=== PATIENT | male | born 1950 | race Caucasian/White ===

== ENCOUNTER 2017-10-13 18:42 | Inpatient (IN) | payer MEDICARE ==
[2017-10-13] MEDS ORDERED: predniSONE 20 MG TAB ONE (19:56)
[2017-10-13] MEDS ORDERED: predniSONE 10 MG TAB ONE (19:56)
[2017-10-13] MEDS ORDERED: Azithromycin 250 MG TAB ONE (19:56)
--- NOTE | 2017-10-13 20:33 | RAD ---
CHEST TWO VIEW 10/13/17 HISTORY: Cough and dyspnea. COMPARISON: None. FINDINGS: There is a left basilar air space opacity. There is a nodular density projecting in the right upper l obe. No pneumothorax. No acute osseous abnormality. Cardiac silhouette and mediastinal contours are w ithin normal limits. IMPRESSION: 1. Left basilar air space opacity concerning for infection. 2. Nodular density projecting in right upper lobe. Close attention on followup radiographs afte r treatment recommended. POS: ORALIA
[2017-10-13] MEDS ORDERED: Sodium Chloride 0.9% 100 ML ONE (20:37)
[2017-10-13] MEDS ORDERED: cefTRIAXone\\ROCEPHIN 2 GM VIAL ONE (20:37)
[2017-10-13] MEDS ORDERED: Ondansetron HCl/PF 4 MG/2 ML Vial ONE (20:59)
[2017-10-13 21:24] LABS: ALT (SGPT) 33 U/L (8-55); AST (SGOT) 33 U/L (5-34); Albumin 3.9 g/dL (3.4-4.8); Alkaline Phosphatase 68 U/L (40-150); Anion Gap 13 mmol/L (10-20); BUN (Urea Nitrogen) 15 mg/dL (8.4-25.7); Bilirubin, Total 0.5 mg/dL (0.2-1.2); CKMB 3.7 ng/mL (0-6.6); Calc. Creatinine Clearance 0 mL/min (70-130); Calcium 9.1 mg/dL (7.8-10.44); Carbon Dioxide 28 mmol/L (23-31); Chloride 101 mmol/L (98-107); Estimated GFR-MDRD 77; Globulin 3.5 g/dL (2.4-3.5); Glucose 121 mg/dL (80-115); Potassium 3.8 mmol/L (3.5-5.1); Protein, Total 7.4 g/dL (5.8-8.1); Sodium 138 mmol/L (136-145); Troponin I 0.011 ng/mL (< 0.028)
[2017-10-13 21:29] LABS: Band 15 % (5-11); Hemoglobin 13.9 g/dL (14.0-18.0); Lymphocytes 9 % (21-51); MDiff Complete? YES; Mean Corpuscular HGB CONC 34.5 g/dL (32.0-36.0); Mean Corpuscular Hemoglobin 30.4 pg (27.0-31.0); Mean Corpuscular Volume 87.9 fl (80.0-94.0); Mean Platelet Volume 6.8 fL (7.4-10.4); Monocytes 5 % (0-10); Neutrophil 71 % (42-75); Platelet Count 357 thou/uL (130-400); RBC Distribution Width 11.3 % (11.5-14.5); Red Blood Cell (RBC) Count 4.57 mill/uL (4.70-6.10); White Blood Cell (WBC) Count 16.1 thou/uL (4.8-10.8)
[2017-10-13] MEDS ORDERED: Pantoprazole 40 MG VIAL ONE (21:47)
[2017-10-14] MEDS ORDERED: Acetaminophen 325 MG TAB PO PRN (01:22)
[2017-10-14] MEDS ORDERED: Ondansetron ODT 4 MG TAB SL PRN (01:22)
[2017-10-14] MEDS ORDERED: Ondansetron HCl/PF 4 MG/2 ML Vial IVP PRN (01:22)
[2017-10-14 02:14] VITALS: BMI 31.2
[2017-10-14] MEDS: Diabetic Tussin 200 MG/10 ML UDCUP PO PRN (02:53)
[2017-10-14] MEDS: Azithromycin 500 MG in Sodium Chloride 0.9% 250 ML 250 ML IVPB SCH (04:46)
--- NOTE | 2017-10-14 04:47 | HP ---
PRIMARY CARE PHYSICIAN: GLORIA. CHIEF COMPLAINT: Shortness of breath. HISTORY OF PRESENT ILLNESS: A 67-year-old male with a minimal past medical history, who is presenting with a chief complaint of shortness of breath. He was found to be hypoxic with a pulse oximetry of 88% on room air, tachypneic, respirations of 22 with a low grade temperature of 101 on presentation. In the emergency room, his evaluation demonstrated a left lower lobe community- acquired pneumonia. The patient currently at the time of my evaluation is on the floor and states that his breathing is somewhat better after administration of breathing treatments, cough medications, and empiric antibiotics in the emergency department. The patient denies any prior similar issues. States that his symptoms have been progressive with cough, low-grade fevers over the past week. His was sick with similar but milder symptoms a few days before he got sick. REVIEW OF SYSTEMS: As per HPI. Constitutional: No significant weight loss or gain in the last 2 weeks. Subjective fevers and chills over the last week. HEENT: Positive for cough, intermittently productive. No other congestion. No headaches, no dizziness, no lightheadedness. Cardiovascular: No chest pain or chest pressure. No left-sided arm numbness or tingling. Respiratory: Dyspnea on exertion with shortness of breath and cough as discussed above. Gastrointestinal: No nausea, no vomiting, no abdominal pain, no issues with constipation or diarrhea. The patient has retained appetite throughout all of these issues. Musculoskeletal: No new myalgias or arthralgias. PAST MEDICAL HISTORY: As per HPI. 1. Obesity. 2. Gastroesophageal reflux disease. 3. Hypertension. 4. Hyperlipidemia. 5. History of spontaneous pneumothorax when the patient was in his 20s. 6. Status post cholecystectomy. 7. PTSD. FAMILY HISTORY: The patient states that he has a significant family history for both pulmonary and cardiovascular diseases, including emphysema and family members who are also tobacco smokers. SOCIAL HISTORY: The patient quit smoking more than 10 years ago. Intermittent alcohol use. No illicit drug use. Patient is currently retired. He is . His would be his medical decision maker if he is unable to make his own. The patient wishes to be FULL CODE at this point in time. HOME MEDICATIONS: The patient states that his is bringing them in the morning. No changes to his regimen in the last month. ALLERGIES: PENICILLIN. PHYSICAL EXAMINATION: VITAL SIGNS: Currently, temperature 98.1, pulse is 76, respirations 18, satting 96% on 2 liters nasal cannula, blood pressure 126/72. GENERAL: The patient is awake, alert, appropriate, reasonable historian, oriented x3, no acute distress, lying in the hospital bed. HEENT: Moist mucous membranes. Equal ocular motions are intact. Normocephalic , atraumatic. CARDIOVASCULAR: S1, S2, soft heart. Pulses 2+ bilateral upper extremities. No murmurs, rubs, or gallops. No pitting pedal edema. RESPIRATORY: No wheezes, rales or rhonchi. Coarseness in bilateral lower lobes. Reasonable air movement. ABDOMEN: Positive bowel sounds, soft, nontender to palpation. MUSCULOSKELETAL: Moving all 4 extremities independently without assistance. LABORATORY DATA AND IMAGING: On 10/13/2017, chest x-ray. Impression, "left basilar airspace opacity concerning for infection. Nodular density projecting in the right upper lobe. Close attention. I will follow up radiographs after treatment recommended." On 10/13/2017 labs, WBC 16.1, hemoglobin 13.9, hematocrit 40.2, platelets 357,000. Sodium 138, potassium 3.8, chloride 101, bicarb 28, BUN 15, creatinine 0.97, glucose 121, calcium 9.1. Total bilirubin 0.5, AST 33, ALT 33, alkaline phosphatase 68, troponin 0.011. Total protein 7.4 , albumin 3.9. ASSESSMENT AND PLAN: A 67-year-old male presenting with a chief complaint of shortness of breath. 1. Shortness of breath and a clinical picture consistent with community- acquired pneumonia. Continue with empiric ceftriaxone, azithromycin with DuoNebs as needed. The patient does not carry a known history of emphysema or chronic obstructive pulmonary disease. The patient was hypoxic on presentation and appears to be somewhat improved at this point in time. Continue supplemental oxygenation and supportive management with antitussives and to the nebulizer treatments as needed. The patient will have a sputum culture obtained and a repeat CBC and BMP in the a.m. 2. Hypertension, stable. 3. Hyperlipidemia, stable. 4. Diet. As tolerated. 5. Activity: As tolerated. We will likely need an ambulatory pulse oximetry daily. 6. Deep venous thrombosis prophylaxis with enoxaparin. 7. Sepsis, likely have a source of infection as pneumonia, already improved at the time of my evaluation. 8. Admit inpatient medical surgical with telemetry. The patient is FULL CODE as discussed above. Thank you for asking me care for the patient. Questions or concerns, contact me at [facility]. SHASHANK
[2017-10-14] MEDS: Enoxaparin Sodium 30 MG/0.3 ML SYRINGE SC SCH (08:48)
--- NOTE | 2017-10-14 14:22 | PDOC.EVN ---
Event Note - Event Note Event Note: Chart reviewed. Pt seen, will follow.
[2017-10-14] MEDS: cefTRIAXone\\ROCEPHIN 1 GM in Syringe 10 ML IVPB SCH (21:14)
[2017-10-14] MEDS: Bupropion 150 MG SR TAB PO SCH (21:14)
[2017-10-15] MEDS ORDERED: Mag-Al 1200 mg/1200 mg/30 ML UDCUP PO PRN (03:56)
[2017-10-15] MEDS: Azithromycin 500 MG in Sodium Chloride 0.9% 250 ML 250 ML IVPB SCH (04:04)
[2017-10-15] MEDS: Calcium Carbonate 500 MG ChewTAB PO PRN (04:04)
[2017-10-15 06:05] LABS: #Basophils 0.1 thou/uL (0.0-0.2); #Eosinphils 0.2 thou/uL (0.0-0.7); #Monocytes 0.9 thou/uL (0.11-0.59); #Neutrophils 9.7 thou/uL (1.40-6.50); %Basophils 0.4 % (0.0-1.0); %Eosinophils 1.2 % (0.0-10.0); %Lymphocytes 21.7 % (21.0-51.0); %Monocytes 6.7 % (0.0-10.0); %Neutrophils 70.1 % (42.0-75.0); Hemoglobin 12.6 g/dL (14.0-18.0); Mean Corpuscular HGB CONC 33.4 g/dL (32.0-36.0); Mean Corpuscular Hemoglobin 30.8 pg (27.0-31.0); Mean Corpuscular Volume 92.3 fl (80.0-94.0); Mean Platelet Volume 6.2 fL (7.4-10.4); Platelet Count 346 thou/uL (130-400); RBC Distribution Width 11.7 % (11.5-14.5); Red Blood Cell (RBC) Count 4.09 mill/uL (4.70-6.10); White Blood Cell (WBC) Count 13.8 thou/uL (4.8-10.8)
[2017-10-15 06:13] LABS: Anion Gap 11 mmol/L (10-20); BUN (Urea Nitrogen) 8 mg/dL (8.4-25.7); Calc. Creatinine Clearance 110 mL/min (70-130); Calcium 8.7 mg/dL (7.8-10.44); Carbon Dioxide 29 mmol/L (23-31); Chloride 103 mmol/L (98-107); Estimated GFR-MDRD 90; Glucose 124 mg/dL (80-115); Potassium 3.8 mmol/L (3.5-5.1); Sodium 139 mmol/L (136-145)
[2017-10-15] MEDS: Bupropion 150 MG SR TAB PO SCH ×2 (08:36→20:03)
[2017-10-15] MEDS: Citalopram 20 MG TAB PO SCH (08:36)
[2017-10-15] MEDS: Enoxaparin Sodium 30 MG/0.3 ML SYRINGE SC SCH (08:37)
[2017-10-15] MEDS: Fish Oil 1,000 MG CAP PO SCH (08:37)
[2017-10-15] MEDS: Metoprolol Tartrate 50 MG TAB PO SCH (08:38)
[2017-10-15] MEDS: Diabetic Tussin 200 MG/10 ML UDCUP PO PRN (08:38)
--- NOTE | 2017-10-15 13:04 | PDOC.PN ---
- Subjective Encounter Start Date: 10/15/17 Encounter Start Time: 07:20 Pt seen for followup re: pneumonia. Denies chest pain,. Cough+, sputum+. No fevers. - Objective Resuscitation Status: Resuscitation Status FULL:Full Resuscitation MAR Reviewed: Yes Vital Signs & Weight: Vital Signs (12 hours) Temp Pulse Resp BP Pulse Ox 10/15/17 11:59 98.4 F 65 16 135/79 94 L 10/15/17 08:55 84 20 10/15/17 08:00 98 F 84 20 95 10/15/17 07:58 98 F 71 16 153/77 H 94 L 10/15/17 03:04 98.1 F 76 16 132/64 94 L Weight Weight 205 lb 11.2 oz I&O: 10/14/17 10/15/17 10/16/17 06:59 06:59 06:59 Intake Total 335 Balance 335 Result Diagrams: 10/15/17 05:45 10/15/17 05:45 EKG Reviewed by me: Yes (Tele: NSR) Phys Exam - Physical Examination Obese HEENT: PERRLA, moist MMs, sclera anicteric, oral pharynx no lesions Neck: no nodes, no JVD, supple, full ROM Respiratory: no rales, no rhonchi, wheezing present Cardiovascular: RRR, no rub Gastrointestinal: soft, non-tender, no distention, positive bowel sounds Musculoskeletal: pulses present Neurological: moves all 4 limbs Psychiatric: normal affect, A&O x 3 Skin: no rash Dx/Plan (1) CAP (community acquired pneumonia) Code(s): J18.9 - PNEUMONIA, UNSPECIFIED ORGANISM Status: Acute Comment: Continue IV antibiotics as below (2) Dyslipidemia Code(s): E78.5 - HYPERLIPIDEMIA, UNSPECIFIED Status: Chronic (3) HTN (hypertension) Code(s): I10 - ESSENTIAL (PRIMARY) HYPERTENSION Status: Chronic Comment: Monitor vital signs, titrate antihypertensives as needed. (4) PTSD (post-traumatic stress disorder) Code(s): F43.10 - POST-TRAUMATIC STRESS DISORDER, UNSPECIFIED Status: Chronic Comment: Continue home medications. - Plan continue antibiotics, out of bed/ambulate * . Try to wean pt off of oxygen. Review of Systems - Review of Systems Constitutional: negative: fever, chills, sweats, weakness, malaise Respiratory: Cough, SOB with Excertion, Sputum. negative: Dry, Shortness of Breath, Hemoptysis, Pleuritic Pain, Wheezing Cardiovascular: negative: chest pain, palpitations, orthopnea, paroxysmal nocturnal dyspnea, edema, light headedness Gastrointestinal: negative: Nausea, Vomiting, Abdominal Pain, Diarrhea, Constipation, Melena, Hematochezia Genitourinary: negative: Dysuria, Frequency, Incontinence, Hematuria, Retention - Medications/Allergies Allergies/Adverse Reactions: Allergies Allergy/AdvReac Type Severity Reaction Status Date / Time Penicillins Allergy Verified 10/14/17 00:36 Medications: Current Medications Al Hydroxide/Mg Hydroxide (Maalox) 30 ml PO Q4H PRN PRN Reason: Heartburn or Indigestion Albuterol/Ipratropium (Duoneb) 3 ml NEB [id number] PRN PRN Reason: SOB &/or Wheezing Last Admin: 10/15/17 08:55 Dose: 3 ml Bupropion HCl (Wellbutrin Sr) 150 mg PO BID [facility] Last Admin: 10/15/17 08:36 Dose: 150 mg Calcium Carbonate (Tums) 1,000 mg PO Q4H PRN PRN Reason: Heartburn or Indigestion Last Admin: 10/15/17 04:04 Dose: 1,000 mg Citalopram Hydrobromide (Celexa) 40 mg PO DAILY [facility] Last Admin: 10/15/17 08:36 Dose: 40 mg Enoxaparin Sodium (Lovenox) 30 mg SC 0900 [facility] Last Admin: 10/15/17 08:37 Dose: 30 mg Fish Oil (Fish Oil) 1,000 mg PO DAILY [facility] Last Admin: 10/15/17 08:37 Dose: 1,000 mg Guaifenesin (Robitussin Sf) 100 mg PO Q6H PRN PRN Reason: Cough Last Admin: 10/15/17 08:38 Dose: 100 mg Azithromycin 500 mg/ Sodium (Chloride) 250 mls @ 250 mls/hr IVPB 0430 [facility] Last Admin: 10/15/17 04:04 Dose: 250 mls Ceftriaxone Sodium 1 gm/ (Syringe) 10 mls @ 120 mls/hr IVPB 2100 [facility] Last Admin: 10/14/17 21:14 Dose: 10 mls Metoprolol Tartrate (Lopressor) 50 mg PO DAILY [facility] Last Admin: 10/15/17 08:38 Dose: 50 mg Pantoprazole Sodium (Protonix) 40 mg PO DAILY [facility] Last Admin: 10/15/17 08:38 Dose: 40 mg
[2017-10-15] MEDS: Benzonatate 100 MG CAP PO SCH ×2 (16:30→20:03)
[2017-10-15] MEDS: cefTRIAXone\\ROCEPHIN 1 GM in Syringe 10 ML IVPB SCH (20:03)
[2017-10-16] MEDS: Azithromycin 500 MG in Sodium Chloride 0.9% 250 ML 250 ML IVPB SCH (03:55)
[2017-10-16] MEDS: Calcium Carbonate 500 MG ChewTAB PO PRN (04:54)
[2017-10-16 05:22] LABS: #Basophils 0.1 thou/uL (0.0-0.2); #Eosinphils 0.1 thou/uL (0.0-0.7); #Lymphocytes 2.7 thou/uL (1.20-3.40); #Monocytes 0.9 thou/uL (0.11-0.59); #Neutrophils 8.4 thou/uL (1.40-6.50); %Basophils 0.4 % (0.0-1.0); %Eosinophils 1.2 % (0.0-10.0); %Lymphocytes 22.3 % (21.0-51.0); %Monocytes 7.2 % (0.0-10.0); %Neutrophils 68.9 % (42.0-75.0); Hemoglobin 12.3 g/dL (14.0-18.0); Mean Corpuscular HGB CONC 34.2 g/dL (32.0-36.0); Mean Corpuscular Hemoglobin 31.3 pg (27.0-31.0); Mean Corpuscular Volume 91.4 fl (80.0-94.0); Platelet Count 345 thou/uL (130-400); RBC Distribution Width 11.6 % (11.5-14.5); Red Blood Cell (RBC) Count 3.94 mill/uL (4.70-6.10); White Blood Cell (WBC) Count 12.2 thou/uL (4.8-10.8)
[2017-10-16 05:35] LABS: Anion Gap 11 mmol/L (10-20); BUN (Urea Nitrogen) 9 mg/dL (8.4-25.7); Calc. Creatinine Clearance 113 mL/min (70-130); Carbon Dioxide 29 mmol/L (23-31); Chloride 102 mmol/L (98-107); Estimated GFR-MDRD Greater than 90; Glucose 114 mg/dL (80-115); Potassium 3.7 mmol/L (3.5-5.1); Sodium 138 mmol/L (136-145)
[2017-10-16] MEDS ORDERED: Non-Formulary Item 1 EACH (Bupropion Hcl [Bupropion Hcl Sr] 1 TAB) PO SCH (09:00)
[2017-10-16] MEDS: Benzonatate 100 MG CAP PO SCH ×3 (09:00→20:40)
[2017-10-16] MEDS ORDERED: Metoprolol Tartrate 50 MG TAB PO SCH (09:00)
[2017-10-16] MEDS ORDERED: Non-Formulary Item 1 EACH (Omeprazole [Omeprazole] 1 TAB) PO SCH (09:00)
[2017-10-16] MEDS ORDERED: Fish Oil 1,000 MG CAP PO SCH (09:00)
[2017-10-16] MEDS: Bupropion 150 MG SR TAB PO SCH ×2 (10:47→20:40)
[2017-10-16] MEDS: Citalopram 20 MG TAB PO SCH ×2 (10:48→10:49)
[2017-10-16] MEDS: Metoprolol Tartrate 50 MG TAB PO SCH ×2 (10:48→10:49)
[2017-10-16] MEDS: Fish Oil 1,000 MG CAP PO SCH ×2 (10:48→10:49)
[2017-10-16] MEDS: Enoxaparin Sodium 30 MG/0.3 ML SYRINGE SC SCH (10:50)
--- NOTE | 2017-10-16 13:50 | PDOC.PN ---
- Subjective Encounter Start Date: 10/16/17 Encounter Start Time: 07:20 Pt seen for followup re: pneumonia. Cough better, less sputum. Feels better. - Objective Resuscitation Status: Resuscitation Status FULL:Full Resuscitation MAR Reviewed: Yes Vital Signs & Weight: Vital Signs (12 hours) Temp Pulse Resp BP Pulse Ox 10/16/17 12:50 70 14 90 L 10/16/17 11:53 98.1 F 70 16 151/78 H 93 L 10/16/17 08:00 98.4 F 79 14 124/73 92 L 10/16/17 07:50 97.6 F 73 14 10/16/17 06:53 73 14 93 L 10/16/17 04:07 97.6 F 75 18 137/70 97 Weight Weight 207 lb 1.6 oz I&O: 10/15/17 10/16/17 10/17/17 06:59 06:59 06:59 Intake Total 950 Balance 950 Result Diagrams: 10/16/17 05:12 10/16/17 05:12 EKG Reviewed by me: Yes (Tele: NSR) Phys Exam - Physical Examination Obese HEENT: moist MMs, oral pharynx no lesions Neck: supple Respiratory: clear to auscultation bilateral Cardiovascular: RRR, no rub Gastrointestinal: soft, positive bowel sounds Musculoskeletal: pulses present Neurological: moves all 4 limbs Psychiatric: normal affect Skin: no rash Dx/Plan (1) CAP (community acquired pneumonia) Code(s): J18.9 - PNEUMONIA, UNSPECIFIED ORGANISM Status: Acute Comment: Switch to oral antibiotics (2) Dyslipidemia Code(s): E78.5 - HYPERLIPIDEMIA, UNSPECIFIED Status: Chronic (3) HTN (hypertension) Code(s): I10 - ESSENTIAL (PRIMARY) HYPERTENSION Status: Chronic Comment: titrate antihypertensives as needed. (4) PTSD (post-traumatic stress disorder) Code(s): F43.10 - POST-TRAUMATIC STRESS DISORDER, UNSPECIFIED Status: Chronic Comment: Stable, on home medications. - Plan continue antibiotics, out of bed/ambulate, DVT proph w/lovenox * . Review of Systems - Review of Systems Constitutional: negative: fever, chills, sweats, weakness, malaise Respiratory: Cough, Sputum. negative: Dry, Shortness of Breath, Hemoptysis, SOB with Excertion, Pleuritic Pain, Wheezing Cardiovascular: negative: chest pain, palpitations, orthopnea, paroxysmal nocturnal dyspnea, edema, light headedness Genitourinary: negative: Dysuria, Frequency, Incontinence, Hematuria, Retention Skin: negative: Rash, Lesions, Perry, Bruising - Medications/Allergies Allergies/Adverse Reactions: Allergies Allergy/AdvReac Type Severity Reaction Status Date / Time Penicillins Allergy Verified 10/14/17 00:36 Medications: Current Medications Al Hydroxide/Mg Hydroxide (Maalox) 30 ml PO Q4H PRN PRN Reason: Heartburn or Indigestion Albuterol/Ipratropium (Duoneb) 3 ml NEB [id number] [facility] Last Admin: 10/16/17 12:50 Dose: 3 ml Benzonatate (Tessalon) 100 mg PO TID [facility] Last Admin: 10/15/17 20:03 Dose: 100 mg Bupropion HCl (Wellbutrin Sr) 150 mg PO BID [facility] Last Admin: 10/16/17 10:47 Dose: 150 mg Calcium Carbonate (Tums) 1,000 mg PO Q4H PRN PRN Reason: Heartburn or Indigestion Last Admin: 10/16/17 04:54 Dose: 1,000 mg Citalopram Hydrobromide (Celexa) 40 mg PO DAILY [facility] Last Admin: 10/16/17 10:48 Dose: 40 mg Citalopram Hydrobromide (Celexa) 40 mg PO DAILY [facility] Last Admin: 10/16/17 10:49 Dose: Not Given Enoxaparin Sodium (Lovenox) 30 mg SC 0900 [facility] Last Admin: 10/16/17 10:50 Dose: 30 mg Fish Oil (Fish Oil) 1,000 mg PO DAILY [facility] Last Admin: 10/16/17 10:48 Dose: 1,000 mg Fish Oil (Fish Oil) 1,000 mg PO DAILY [facility] Last Admin: 10/16/17 10:49 Dose: Not Given Guaifenesin (Robitussin Sf) 100 mg PO Q6H PRN PRN Reason: Cough Last Admin: 10/15/17 08:38 Dose: 100 mg Azithromycin 500 mg/ Sodium (Chloride) 250 mls @ 250 mls/hr IVPB 0430 [facility] Last Admin: 10/16/17 03:55 Dose: 250 mls Ceftriaxone Sodium 1 gm/ (Syringe) 10 mls @ 120 mls/hr IVPB 2100 [facility] Last Admin: 10/15/17 20:03 Dose: 10 mls Metoprolol Tartrate (Lopressor) 50 mg PO DAILY [facility] Last Admin: 10/16/17 10:48 Dose: 50 mg Metoprolol Tartrate (Lopressor) 50 mg PO DAILY [facility] Last Admin: 10/16/17 10:49 Dose: Not Given Pantoprazole Sodium (Protonix) 40 mg PO DAILY [facility] Last Admin: 10/16/17 10:48 Dose: 40 mg Sodium Chloride (Flush - Normal Saline) 10 ml IVF Q12HR [facility] Sodium Chloride (Flush - Normal Saline) 10 ml IVF PRN PRN PRN Reason: Saline Flush
[2017-10-16] MEDS: Cefdinir 300 MG CAP PO SCH (20:40)
[2017-10-17 05:25] LABS: #Eosinphils 0.2 thou/uL (0.0-0.7); #Lymphocytes 3.2 thou/uL (1.20-3.40); #Neutrophils 7.4 thou/uL (1.40-6.50); %Basophils 0.1 % (0.0-1.0); %Lymphocytes 26.6 % (21.0-51.0); %Monocytes 8.5 % (0.0-10.0); %Neutrophils 62.7 % (42.0-75.0); Hemoglobin 12.8 g/dL (14.0-18.0); Mean Corpuscular HGB CONC 33.1 g/dL (32.0-36.0); Mean Corpuscular Hemoglobin 30.2 pg (27.0-31.0); Mean Corpuscular Volume 91.3 fl (80.0-94.0); Platelet Count 394 thou/uL (130-400); RBC Distribution Width 11.6 % (11.5-14.5); Red Blood Cell (RBC) Count 4.23 mill/uL (4.70-6.10); White Blood Cell (WBC) Count 11.9 thou/uL (4.8-10.8)
[2017-10-17 05:38] LABS: Anion Gap 12 mmol/L (10-20); BUN (Urea Nitrogen) 9 mg/dL (8.4-25.7); Calc. Creatinine Clearance 117 mL/min (70-130); Calcium 8.8 mg/dL (7.8-10.44); Carbon Dioxide 26 mmol/L (23-31); Chloride 101 mmol/L (98-107); Estimated GFR-MDRD Greater than 90; Glucose 106 mg/dL (80-115); Potassium 3.6 mmol/L (3.5-5.1); Sodium 135 mmol/L (136-145)
[2017-10-17 07:25] VITALS: BP 151/81
[2017-10-17 07:49] VITALS: TEMP 98.3
[2017-10-17] MEDS: Enoxaparin Sodium 30 MG/0.3 ML SYRINGE SC SCH (08:15)
[2017-10-17] MEDS: Benzonatate 100 MG CAP PO SCH (08:15)
[2017-10-17] MEDS: Cefdinir 300 MG CAP PO SCH (08:17)
[2017-10-17] MEDS: Bupropion 150 MG SR TAB PO SCH (08:17)
[2017-10-17] MEDS: Metoprolol Tartrate 50 MG TAB PO SCH (08:18)
[2017-10-17] MEDS: Fish Oil 1,000 MG CAP PO SCH (08:18)
[2017-10-17] MEDS: Citalopram 20 MG TAB PO SCH (08:18)
[2017-10-17] MEDS ORDERED: Azithromycin 250 MG TAB PO SCH (09:00)
--- NOTE | 2017-10-17 12:28 | DIS ---
DATE OF ADMISSION: 10/14/2017 DATE OF DISCHARGE: 10/17/2017 PRIMARY CARE PROVIDER: [facility] in [place]. DISCHARGE DIAGNOSIS: Community-acquired pneumonia. CONDITION OF PATIENT ON THE DAY OF DISCHARGE: Stable. HOSPITAL COURSE: I saw Mr. Romero on the day of discharge. He denies any chest pain or shortness of breath. He denies any fevers or chills. Vital signs are stable. S1 and S2 are heard, regular. Olivia gs are clear to auscultation bilaterally. DISCHARGE MEDICATIONS: Cefdinir 300 mg 2 times a day for 7 more days, Celexa 40 mg daily, bupropion 150 mg 2 times a day, fish oil 1 tablet daily, metoprolol 50 mg daily, and omeprazole 20 mg daily. HOSPITAL COURSE: Mr. Romero is a pleasant 67-year-old gentleman who was admitted to [facility] on 10/14/2017 for community-acquired pneumonia. Chest x-ray done at the time of adm ission showed left basilar airspace opacity. He also had a nodular density projecting in the right u pper lobe. He will need followup radiographs through his primary care physician's office. He was treated with intravenous antibiotics, subsequently stepped down to oral antibiotics. He impro christiane clinically and is being discharged home in a stable condition. On the day of discharge, he has a white count of 11,900, hemoglobin 12.8, platelet count 394. Sodium 135, normal potassium, and normal creatinine. Many thanks for allowing me to participate in your patient's care. Please feel free to contact me wi th any questions or concerns. DISCHARGE DESTINATION: Home. TOTAL AMOUNT OF TIME SPENT COORDINATING THIS DISCHARGE: 33 minutes.
--- NOTE | 2017-10-17 18:19 | EKG ---
Test Reason : Blood Pressure : / mmHG Vent. Rate : 104 BPM Atrial Rate : 104 BPM P-R Int : 114 ms QRS Dur : 082 ms QT Int : 404 ms P-R-T Axes : 077 040 054 degrees QTc Int : 531 ms Sinus tachycardia Possible Left atrial enlargement Prolonged QT Abnormal ECG Confirmed by TRUPTI VIGIL ([id number]), video editor BRANDIN HERNANDEZ ([id number]) on 10/17/2017 6:18:46 PM Referred By: Confirmed By:TRUPTI VIGIL
== END 2017-10-17 11:55 | disposition home or self-care (01) | DRG 195 ==
LOC: SCSER 18:42 → 2SE 21:50
PROVIDERS: ADMIT Internal Medicine; ATTEND Internal Medicine
DX: J18.9 Pneumonia, unspecified organism (principal); E66.9 Obesity, unspecified; Z68.30 Body mass index [BMI] 30.0-30.9, adult; K21.9 Gastro-esophageal reflux disease without esophagitis; I10 Essential (primary) hypertension; E78.5 Hyperlipidemia, unspecified; F43.10 Post-traumatic stress disorder, unspecified; Z87.891 Personal history of nicotine dependence; Z88.0 Allergy status to penicillin
CPT/HCPCS: 36415; 71046; 80048; 80053; 82553; 84484; 85025; 87040; 87070; 87205; 87633; 93005; 94640; 94760; 96361; 96365; 96375; A4216; C9113; J0456; J0696; J1650; J2405; J7050; J7506; J7512; J7620

== ENCOUNTER 2018-10-27 07:17 | Outpatient (CLI) | payer MEDICARE ==
[2018-10-27] MEDS ORDERED: ADENOSINE 60 MG/20 ML VIAL ONE (07:31)
--- NOTE | 2018-10-27 13:38 | NM ---
CARDIAC SPECT: CLINICAL HISTORY: 68-year-old male with exercise intolerance, hypertension, dyslipidemia, family history of c oronary artery disease, and other general symptoms and signs. TECHNIQUE: A myocardial perfusion scan was performed using the single isotope one day protocol with technetium-9 9m sestamibi. 10 mCi were injected intravenously for the rest exam followed by 33 mCi for the stress exam. Pharmacologic stress with Adenosine was monitored and interpreted by Dr. Cooper. FINDINGS: Homogeneous tracer distribution is seen in the myocardial segments on stress and rest images without fixed or reversible defects. GATED SPECT LVEF: 67%. WALL MOTION EXAM: Normal. IMPRESSION: Normal myocardial perfusion scan. POS: ALVARO
--- NOTE | 2018-10-28 09:26 | STRESS ---
Acquisition Time: 2018-10-27 09:20:20 Total Exercise Time: 00:04:00 Test Indications: EXERCISE INTOLERANCE Medications: Protocol: ADENOSINE Max HR: 071 BPM 47% of Pred: 151 BPM Max BP: 130/070 mmHG Max Work Load: 1.0 METS RESTING ECG: NORMAL SINUS RHYTHM AT 52 BPM SYMPTOMS: LIGHTHEADED NORMAL BP RESPONSE ECTOPY: NONE ECG STRESS: NO SIGNIFICANT CHANGES INTERPRETATION: AWAIT NUCLEAR IMAGES FOR DEFINITIVE DIAGNOSIS Confirmed by MERI MANCUSO ([id number]), manager editorial MATILDA GIMENEZ ([id number]) on 10/28/2018 9:25:43 AM Referred By: JUICE WEINBERG Confirmed By:MERI MANCUSO
== END 2018-10-27 07:18 | disposition home or self-care (01) ==
LOC: NM 07:17
PROVIDERS: ATTEND Nurse Practitioner Adult Health
DX: R68.89 Other general symptoms and signs (principal)
CPT/HCPCS: 78452; 93017; A9500; J0153

== ENCOUNTER → 2022-08-07 | Day surgery (SDC) | payer MEDICARE | END | disposition home or self-care (01) | LOC: SDC 13:50 | DX: I37.1 Nonrheumatic pulmonary valve insufficiency (principal); Z88.0 Allergy status to penicillin | CPT/HCPCS: 93306 ==